=== PATIENT | female | born 1990 | race Caucasian/White ===

== ENCOUNTER 2018-11-17 08:56 | Emergency (ER) | payer SELFPAY ==
[2018-11-17] MEDS ORDERED: ONDANSETRON 4 MG/2 ML VIAL ONE (09:38)
[2018-11-17] MEDS ORDERED: MORPHINE 4 MG/ML SYR ONE (09:38)
[2018-11-17 09:47] LABS: Absolute Monocytes 0.7 K/uL (0.1-1.3); Absolute Neutrophil 9.1 K/uL (1.8-8.0); Basophils % 0.5 % (0-1.3); Eosinophils % 0.4 % (0-4.4); Hematocrit 39.7 % (36.0-45.0); Lymphocytes % 9.2 % (15.3-44.8); MPV 9.8 fL (7.6-11.3); Monocytes % 6.5 % (3.3-12.3); RBC Red Blood Cell Count 4.46 M/uL (3.86-4.86)
[2018-11-17 10:01] LABS: ALT/SGPT 15 U/L (12-78); AST/SGOT 10 U/L (15-37); Albumin 3.7 g/dL (3.4-5.0); Alkaline Phosphatase 66 U/L (45-117); BUN Blood Urea Nitrogen 15 mg/dL (7-18); Bicarbonate 28 mmol/L (21-32); Bilirubin Direct 0.3 mg/dL (0-0.2); Bilirubin Total 1.4 mg/dL (0.2-1.0); Glucose Level 98 mg/dL (74-106); Lipase 59 U/L (73-393); Protein, Total 6.7 g/dL (6.4-8.2); Sodium Level 143 mmol/L (136-145)
[2018-11-17 10:40] LABS: Urine Blood 2+ (NEG); Urine Glucose NEGATIVE (NEG); Urine Protein NEGATIVE (NEG); Urine Specific Gravity 1.015 (1.005-1.030)
--- NOTE | 2018-11-17 11:33 | RAD REPORT ---
EXAM DESCRIPTION: CT - Abdomen Pelvis W Contrast - 11/17/2018 10:58 am CLINICAL HISTORY: Abdominal pain with nausea. COMPARISON: 2014 TECHNIQUE: Computed axial tomography of the abdomen pelvis was obtained. 100 cc Isovue-300 was admin istered intravenously. Oral contrast was not requested which limits evaluation of bowel. All CT scans are performed using dose optimization technique as appropriate and may include automated exposure control or mA/KV adjustment according to patient size. FINDINGS: The liver, spleen, pancreas, adrenal and kidneys appear unremarkable. There is no evidence of diverticulitis. A tampon is in place The wall of the cecum is mildly thickened. Mild stranding is seen within the adjacent fat. The append ix is not clearly seen. IMPRESSION: Mild thickening of the wall of the cecum probably indicates mild inflammation. Mild stra nding is seen within the adjacent fat. The appendix is not clearly seen. If the patient has clinical symptoms to suggest appendicitis then a CT scan with oral contrast and opacification of the terminal ileum/cecum would be recommended
[2018-11-17] MEDS ORDERED: FENTANYL CITR 100 MCG/2 ML ONE ×2 (11:57→14:27)
--- NOTE | 2018-11-17 13:57 | RAD REPORT ---
EXAM DESCRIPTION: CT - Pelvis Wo Cont - 11/17/2018 1:41 pm CLINICAL HISTORY: Oral contrast Right lower quadrant pain. COMPARISON: Abdomen Pelvis W Contrast dated 11/17/2018 TECHNIQUE: All CT scans are performed using dose optimization technique as appropriate and may inclu de automated exposure control or mA/KV adjustment according to patient size. FINDINGS: There is asymmetric wall thickening involving the cecum with surrounding inflammatory jones ges. The anterior cecal wall is thickened to 15-18 mm. No pneumatosis coli seen. The appendix is seen to extend posteriorly from the cecum and fill with contrast indicating that acut e appendicitis is not present. No pelvic mass or hematoma. IMPRESSION: Asymmetric thickening and inflammation involving the cecum distally is present. This wou ld be most compatible with cecal colitis or typhlitis. The appendix is normal and fills with oral con trast.
[2018-11-17] MEDS ORDERED: CIPROFLOXACIN HCL 500 MG TAB ONE (14:28)
[2018-11-17] MEDS ORDERED: metroNIDAZOLE 500 MG TABLET ONE (14:28)
--- NOTE | 2018-11-17 14:59 | EDPHYS ---
Physician Documentation [facility] Name: Kim Tomlin Age: 28 yrs Sex: Female : 1990 Arrival Date: 11/17/2018 Time: 08:59 Bed 17 Private MD: ED Physician Jesse Gastelum HPI: 11/17 09:19 This 28 yrs old Female presents to ER via Ambulatory with complaints of Skin jmm Problem. 09:19 The patient presents with abdominal pain right lower quadrant. Onset: The jmm symptoms/episode began/occurred this morning. Associated signs and symptoms: Pertinent positives: nausea, Pertinent negatives: diarrhea, vomiting. This is a 28 year old female with no chronic medical conditions that presents to the ED with complaints of abdominal pain, nausea beginning this morning. Patient states having complications from a wound from a c section 7 month prior. Patient denies fever. . 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 tw2 Historical: - Allergies: 09:08 PENICILLINS; hb - Home Meds: 09:08 None [Active]; hb - PMHx: 09:08 None; hb - PSHx: 09:08 ; hb - Immunization history:: Adult Immunizations up to date. - Social history:: Smoking status: Patient uses tobacco products, smokes one-half pack cigarettes per day. - Ebola Screening: : No symptoms or risks identified at this time. ROS: 09:19 Constitutional: Negative for fever, chills, and weight loss, Cardiovascular: Negative jmm for chest pain, palpitations, and edema, Respiratory: Negative for shortness of breath, cough, wheezing, and pleuritic chest pain. 09:19 Abdomen/GI: Positive for abdominal pain, nausea. 09:19 All other systems are negative. Exam: 09:19 Constitutional: This is a well developed, well nourished patient who is awake, alert, jmm and in no acute distress. Head/Face: atraumatic. Eyes: EOMI, no conjunctival erythema appreciated ENT: Moist Mucus Membranes Neck: Trachea midline, Supple Chest/axilla: Normal chest wall appearance and motion. Cardiovascular: Regular rate and rhythm. No edema appreciated Respiratory: Normal respirations, no respiratory distress appreciated 09:19 Abdomen/GI: Inspection: abdomen appears normal, Bowel sounds: normal, Palpation: soft, moderate abdominal tenderness, in the right lower quadrant. 09:19 Skin: Appearance: Color: normal in color. 09:19 Neuro: Orientation: is normal, Mentation: is normal, Memory: is normal. 09:19 Psych: Behavior/mood is pleasant, cooperative. Vital Signs: 09:08 BP 123 / 83; Pulse 109; Resp 16; Temp 98.2; Pulse Ox 99% on R/A; Pain 10/10; hb 10:25 BP 109 / 71; Pulse 65; Resp 17; Pulse Ox 99% on R/A; Pain 7/10; tw2 11:12 BP 99 / 58 Supine; Pulse 83; Resp 17; Pulse Ox 99% on R/A; tw2 12:15 BP 98 / 60; Pulse 64; Resp 17; Pulse Ox 98% on R/A; tw2 13:17 BP 101 / 66; Pulse 71; Resp 17; Pulse Ox 98% on R/A; tw2 14:20 BP 96 / 61; Pulse 72; Resp 17; Pulse Ox 99% on R/A; Pain 8/10; tw2 15:06 BP 94 / 70; Pulse 68; Resp 17; Pulse Ox 98% on R/A; tw2 MDM: 09:19 Patient medically screened. [facility] 14:56 Data reviewed: vital signs, nurses notes. Counseling: I had a detailed discussion with esther the patient and/or guardian regarding: the historical points, exam findings, and any diagnostic results supporting the discharge/admit diagnosis, lab results, radiology results, the need for outpatient follow up, to return to the emergency department if symptoms worsen or persist or if there are any questions or concerns that arise at home. ED course: Patient is alert and non toxic in appearance in the ED. CT negative for appendicitis. Patient given return precautions. Patient understood and agrees with the plan of care. . 11/17 09:20 Order name: Basic Metabolic Panel; Complete Time: 10:12 [facility] 11/17 09:20 Order name: CBC with Diff; Complete Time: 09:50 [facility] 11/17 09:20 Order name: Creatinine for Radiology; Complete Time: 10:12 [facility] 11/17 09:20 Order name: Hepatic Function; Complete Time: 10:12 [facility] 11/17 09:20 Order name: Lipase; Complete Time: 10:12 [facility] 11/17 10:29 Order name: Urine Dipstick--Ancillary (enter results); Complete Time: 10:46 11/17 09:20 Order name: CT Abd/Pelvis - W/Contrast; Complete Time: 11:35 [facility] 11/17 10:29 Order name: Urine --Ancillary (enter results); Complete Time: 10:46 11/17 13:41 Order name: Pelvis Wo Cont; Complete Time: 14:01 [facility] 11/17 09:20 Order name: IV Saline Lock; Complete Time: 09:39 [facility] 11/17 09:20 Order name: Labs collected and sent; Complete Time: 09:39 [facility] Administered Medications: 09:36 Drug: Zofran 4 mg Route: IVP; Site: right antecubital; tw2 11:14 Follow up: Response: No adverse reaction tw2 09:38 Drug: morphine 4 mg Route: IVP; Site: right antecubital; tw2 11:14 Follow up: Response: No adverse reaction; Pain is decreased tw2 11:48 Drug: fentaNYL (PF) 25 mcg Route: IVP; Site: right antecubital; tw2 12:40 Follow up: Response: No adverse reaction; Pain is decreased tw2 14:20 Drug: Cipro 500 mg Route: PO; tw2 15:05 Follow up: Response: No adverse reaction tw2 14:20 Drug: Flagyl 500 mg Route: PO; tw2 15:05 Follow up: Response: No adverse reaction tw2 14:20 Drug: fentaNYL (PF) 25 mcg Route: IVP; Site: right antecubital; tw2 15:05 Follow up: Response: No adverse reaction; Pain is decreased tw2 Disposition: 16:40 Co-signature as Attending Physician, Jesse Gastelum MD I agree with the assessment and giovana plan of care. Disposition: 11/17/18 14:58 Discharged to Home. Impression: Colitis. - Condition is Stable. - Discharge Instructions: Colitis. - Prescriptions for Zofran ODT 4 mg Oral tablet,disintegrating - place 1 tablet by TRANSLINGUAL route every 4-6 hours; 20 tablet. Flagyl 500 mg Oral Tablet - take 1 tablet by ORAL route every 8 hours for 10 days; 30 tablet. Tylenol- Codeine #3 300-30 mg Oral Tablet - take 1 tablet by ORAL route every 6 hours As needed; 20 tablet. Cipro 500 mg Oral Tablet - take 1 tablet by ORAL route every 12 hours for 10 days; 20 tablet. - Medication Reconciliation Form, Thank You Letter, Antibiotic Education, Prescription Opioid Use, Work release form, Family Work Release form. - Follow up: Ulises Benavidez MD; When: 2 - 3 days; Reason: Recheck today's complaints, Continuance of care, Re-evaluation by your physician. Signatures: Dispatcher [employer] [facility] Jesse Gastelum MD MD cha Mickail, Joel, PA PA Tawanna Burnette, DANYEL RN Negin Quiroz RN RN tw2 Corrections: (The following items were deleted from the chart) 13:41 11:40 Pelvis W/Cont+CT.RAD.BRZ ordered. [facility] 15:08 14:58 11/17/2018 14:58 Discharged to Home. Impression: Colitis. Condition is Stable. tw2 Forms are Work release form, Family Work Release, Medication Reconciliation Form, Thank You Letter, Antibiotic Education, Prescription Opioid Use. Follow up: Ulises Benavidez; When: 2 - 3 days; Reason: Recheck today's complaints, Continuance of care, Re-evaluation by your physician. [facility]
--- NOTE | 2018-11-17 14:59 | ER ---
Nurse's Notes [facility] Name: Kim Tomlin Age: 28 yrs Sex: Female : 1990 Arrival Date: 11/17/2018 Time: 08:59 Bed 17 Private MD: Diagnosis: Colitis Presentation: 11/17 09:06 Presenting complaint: Patient states: "I had a c section 7 months ago and got an hb infection and almost , today I woke up with a knot on my abdomen and it hurts really bad.:". Transition of care: patient was not received from another setting of care. Onset of symptoms was November 17, 2018. Risk Assessment: Do you want to hurt yourself or someone else? Patient reports no desire to harm self or others. Care prior to arrival: Medication(s) given: Tylenol, at 0630 today. 09:06 Method Of Arrival: Ambulatory hb 09:06 Acuity: ROSEY 3 hb 09:14 Initial Sepsis Screen: Does the patient meet any 2 criteria? No. Patient's initial tw2 sepsis screen is negative. Does the patient have a suspected source of infection? Yes: Skin breakdown/wound. 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 tw2 Historical: - Allergies: 09:08 PENICILLINS; hb - Home Meds: 09:08 None [Active]; hb - PMHx: 09:08 None; hb - PSHx: 09:08 ; hb - Immunization history:: Adult Immunizations up to date. - Social history:: Smoking status: Patient uses tobacco products, smokes one-half pack cigarettes per day. - Ebola Screening: : No symptoms or risks identified at this time. Screenin:09 Abuse screen: Denies threats or abuse. Denies injuries from another. Nutritional hb screening: No deficits noted. Tuberculosis screening: No symptoms or risk factors identified. Fall Risk None identified. Assessment: 09:15 General: Appears in no apparent distress. Behavior is agitated. Pain: Complains of pain tw2 in right lower quadrant and left lower quadrant. Neuro: Level of Consciousness is awake, alert, obeys commands, Oriented to person, place, time, situation. Cardiovascular: Patient's skin is warm and dry. Respiratory: Airway is patent Respiratory effort is even, unlabored, Respiratory pattern is regular, symmetrical. GI: No signs and/or symptoms were reported involving the gastrointestinal system. : No signs and/or symptoms were reported regarding the genitourinary system. EENT: No signs and/or symptoms were reported regarding the EENT system. Derm: Reports pain where incision was. Musculoskeletal: Range of motion: intact in all extremities. 10:29 Reassessment: Patient appears in no apparent distress at this time. No changes from tw2 previously documented assessment. Patient and/or family updated on plan of care and expected duration. Pain level reassessed. Patient is alert, oriented x 3, equal unlabored respirations, skin warm/dry/pink. 11:12 Reassessment: Patient appears in no apparent distress at this time. No changes from tw2 previously documented assessment. Patient and/or family updated on plan of care and expected duration. Pain level reassessed. Patient is alert, oriented x 3, equal unlabored respirations, skin warm/dry/pink. 12:15 Reassessment: Patient appears in no apparent distress at this time. No changes from tw2 previously documented assessment. Patient and/or family updated on plan of care and expected duration. Pain level reassessed. Patient is alert, oriented x 3, equal unlabored respirations, skin warm/dry/pink. 13:17 Reassessment: Patient appears in no apparent distress at this time. Patient and/or tw2 family updated on plan of care and expected duration. Pain level reassessed. Patient is alert, oriented x 3, equal unlabored respirations, skin warm/dry/pink. 14:11 Reassessment: Patient appears in no apparent distress at this time. No changes from tw2 previously documented assessment. Patient and/or family updated on plan of care and expected duration. Pain level reassessed. Patient is alert, oriented x 3, equal unlabored respirations, skin warm/dry/pink. provider at bedside at this time. 15:06 Reassessment: Patient appears in no apparent distress at this time. No changes from tw2 previously documented assessment. Patient and/or family updated on plan of care and expected duration. Pain level reassessed. Patient is alert, oriented x 3, equal unlabored respirations, skin warm/dry/pink. Vital Signs: 09:08 BP 123 / 83; Pulse 109; Resp 16; Temp 98.2; Pulse Ox 99% on R/A; Pain 10/10; hb 10:25 BP 109 / 71; Pulse 65; Resp 17; Pulse Ox 99% on R/A; Pain 7/10; tw2 11:12 BP 99 / 58 Supine; Pulse 83; Resp 17; Pulse Ox 99% on R/A; tw2 12:15 BP 98 / 60; Pulse 64; Resp 17; Pulse Ox 98% on R/A; tw2 13:17 BP 101 / 66; Pulse 71; Resp 17; Pulse Ox 98% on R/A; tw2 14:20 BP 96 / 61; Pulse 72; Resp 17; Pulse Ox 99% on R/A; Pain 8/10; tw2 15:06 BP 94 / 70; Pulse 68; Resp 17; Pulse Ox 98% on R/A; tw2 ED Course: 08:59 Patient arrived in ED. as 09:07 Triage completed. hb 09:08 Arm band placed on. hb 09:13 Felix Lind PA is PHCP. jmm 09:13 Jesse Gastelum MD is Attending Physician. [facility] 09:14 Negin Young, DANYEL is Primary Nurse. tw2 09:14 Bed in low position. Call light in reach. Pulse ox on. NIBP on. tw2 09:35 Inserted saline lock: 22 gauge in right antecubital area, using aseptic technique. tw2 Blood collected. 09:51 Radiology exam delayed due to lab results not completed at this time. (BUN/Creatinine). sj 10:22 Patient has correct armband on for positive identification. Bed in low position. Call mh5 light in reach. Side rails up X 1. Adult w/ patient. Warm blanket given. Pulse ox on. NIBP on. 10:22 Urine collected: clean catch specimen, clear. 5 10:[address] via wheelchair. sj 11:01 CT Abd/Pelvis - W/Contrast In Process Unspecified. EDMS 13:40 CT completed. Patient tolerated procedure well. Patient moved to CT via wheelchair. Patient moved back from CT. 13:50 Pelvis Wo Cont In Process Unspecified. EDMS 14:57 Ulises Benavidez MD is Referral Physician. [facility] 15:06 No provider procedures requiring assistance completed. IV discontinued, intact, tw2 bleeding controlled, No redness/swelling at site. Pressure dressing applied. Administered Medications: 09:36 Drug: Zofran 4 mg Route: IVP; Site: right antecubital; tw2 11:14 Follow up: Response: No adverse reaction tw2 09:38 Drug: morphine 4 mg Route: IVP; Site: right antecubital; tw2 11:14 Follow up: Response: No adverse reaction; Pain is decreased tw2 11:48 Drug: fentaNYL (PF) 25 mcg Route: IVP; Site: right antecubital; tw2 12:40 Follow up: Response: No adverse reaction; Pain is decreased tw2 14:20 Drug: Cipro 500 mg Route: PO; tw2 15:05 Follow up: Response: No adverse reaction tw2 14:20 Drug: Flagyl 500 mg Route: PO; tw2 15:05 Follow up: Response: No adverse reaction tw2 14:20 Drug: fentaNYL (PF) 25 mcg Route: IVP; Site: right antecubital; tw2 15:05 Follow up: Response: No adverse reaction; Pain is decreased tw2 Outcome: 14:58 Discharge ordered by . esther 15:06 Discharged to home ambulatory, with significant other. tw2 15:06 Condition: stable 15:06 Discharge instructions given to patient, significant other, Instructed on discharge instructions, follow up and referral plans. no drinking with medication, no driving heavy equipment, medication usage, Demonstrated understanding of instructions, follow-up care, medications, Prescriptions given X 4. 15:08 Patient left the ED. tw2 Signatures: Dispatcher [employer] EDMS Felix Lind PA PA jmm Jones, Susan sj Martinez, Amelia as Baxter, Heather, RN RN hb Wise, Tara, RN RN [facility] Elza Couch [facility] Corrections: (The following items were deleted from the chart) 10:20 09:06 Acuity: ROSEY 4 hb hb
== END 2018-11-17 15:08 | disposition home or self-care (01) ==
LOC: ER 08:56
DX: K52.9 Noninfective gastroenteritis and colitis, unspecified (principal); F17.210 Nicotine dependence, cigarettes, uncomplicated; Z88.0 Allergy status to penicillin
CPT/HCPCS: 36415; 72192; 74177; 80048; 80076; 81003; 81025; 83690; 85025; J2405; J3010; Q9967

== ENCOUNTER 2019-03-21 09:50 | Emergency (ER) | payer SELFPAY ==
--- OUTSIDE RECORDS SUMMARY | 2019-03-21 09:52 | XMS REPORT ---
:1990 [facility] Address [address] [place] [address] Dr. Land [address] [place] [id number] Care Team Providers Name Role Phone Unavailable Unavailable Unavailable Problems This patient has no known problems. Allergies, Adverse Reactions, Alerts This patient has no known allergies or adverse reactions. Medications This patient has no known medications.
[2019-03-21] MEDS ORDERED: ONDANSETRON 4 MG/2 ML VIAL ONE (10:46)
[2019-03-21] MEDS ORDERED: NA CHLORIDE 0.9% 1,000 ML ONE (10:46)
[2019-03-21] MEDS ORDERED: MORPHINE 4 MG/ML SYR ONE (10:46)
[2019-03-21 10:47] LABS: Absolute Lymphocytes (CBC) 1.2 K/uL (0.7-4.9); Basophils % 0.4 % (0-1.3); Eosinophils % 0.8 % (0-4.4); Hematocrit 42.6 % (36.0-45.0); Lymphocytes % 11.2 % (15.3-44.8); MPV 10.1 fL (7.6-11.3); Monocytes % 4.6 % (3.3-12.3); RBC Red Blood Cell Count 4.72 M/uL (3.86-4.86)
[2019-03-21 10:59] LABS: ALT/SGPT 18 U/L (12-78); AST/SGOT 11 U/L (15-37); Albumin 3.9 g/dL (3.4-5.0); Alkaline Phosphatase 56 U/L (45-117); BUN Blood Urea Nitrogen 15 mg/dL (7-18); Bicarbonate 27 mmol/L (21-32); Bilirubin Direct 0.2 mg/dL (0-0.2); Bilirubin Total 0.7 mg/dL (0.2-1.0); Glucose Level 114 mg/dL (74-106); Lipase 82 U/L (73-393); Potassium 4.2 mmol/L (3.5-5.1); Protein, Total 6.9 g/dL (6.4-8.2); Sodium Level 141 mmol/L (136-145)
[2019-03-21 11:16] LABS: Urine Blood TRACE (NEG); Urine Glucose NEGATIVE (NEG); Urine Protein TRACE (NEG); Urine pH 7.5 (5.0-7.0)
--- NOTE | 2019-03-21 12:01 | RAD REPORT ---
EXAM DESCRIPTION: CT - Abdomen Pelvis W Contrast - 03/21/2019 11:26 am CLINICAL HISTORY: Right-sided abdominal pain COMPARISON: CT study October 2018 TECHNIQUE: Biphasic, helical CT imaging of the abdomen and pelvis was performed following 100 ml non -ionic IV contrast. Oral contrast was given. All CT scans are performed using dose optimization technique as appropriate and may include automated exposure control or mA/KV adjustment according to patient size. FINDINGS: No suspicious findings in the lung bases. The liver, spleen, and pancreas show no suspicious findings. Gallbladder and biliary tree are also wi thout suspicious finding. Symmetric renal function is seen with no hydronephrosis or suspicious renal mass. No pyelonephritis o r acute parenchymal process. No bladder abnormalities. No adrenal abnormalities. Uterus and ovaries show no suspicious findings. No dilated bowel loops or bowel wall thickening. Appendix is identified and normal in diameter. No fr ee air or pneumatosis. Physiologic quantity of free fluid seen in the cul de sac. Tampon is in place. No hernia, mass or bulky lymphadenopathy. No suspicious bony findings. IMPRESSION: Contrast enhanced CT abdomen and pelvis showing no significant or suspicious finding. Physiologic quantity of free fluid is present in the cul de sac. No abnormality seen to explain right -sided pain pattern.
--- NOTE | 2019-03-21 12:19 | ER ---
Nurse's Notes [facility] Name: Kim Tomlin Age: 29 yrs Sex: Female : 1990 Arrival Date: 03/21/2019 Time: 09:52 Bed 13 Private MD: Diagnosis: Abdominal and pelvic pain Presentation: 03/21 10:10 Presenting complaint: Patient states: i have this pain on my R lower abd that goes up hj to my upper abdomen that started today; i vomited once; denies fever and chills;. Transition of care: patient was not received from another setting of care. Onset of symptoms was March 21, 2019. Risk Assessment: Do you want to hurt yourself or someone else? Patient reports no desire to harm self or others. Initial Sepsis Screen: Does the patient meet any 2 criteria? No. Patient's initial sepsis screen is negative. Does the patient have a suspected source of infection? No. Patient's initial sepsis screen is negative. Care prior to arrival: None. 10:10 Method Of Arrival: Ambulatory 10:10 Acuity: ROSEY 3 Triage Assessment: 10:14 General: Appears in no apparent distress. uncomfortable, Behavior is calm, cooperative, hj appropriate for age. Pain: Complains of pain in abdomen. GI: Reports lower abdominal pain, upper abdominal pain, nausea, vomiting. 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 - Social history:: Smoking status: Patient uses tobacco products, Patient/guardian denies using alcohol. - Ebola Screening: : Patient negative for fever greater than or equal to 101.5 degrees Fahrenheit, and additional compatible Ebola Virus Disease symptoms Patient denies exposure to infectious person Patient denies travel to an Ebola-affected area in the 21 days before illness onset. Screenin:13 Abuse screen: Denies threats or abuse. Denies injuries from another. Nutritional hj screening: No deficits noted. Tuberculosis screening: No symptoms or risk factors identified. Fall Risk None identified. Assessment: 10:14 GI: Bowel sounds Abd is soft Abdomen is tender to palpation. hj 10:14 General: Appears in no apparent distress. uncomfortable, Behavior is calm, cooperative, hj appropriate for age. Pain: Complains of pain in right lower quadrant and suprapubic area and abdomen. Neuro: Level of Consciousness is awake, alert, obeys commands, Oriented to person, place, time, situation, Appropriate for age. Cardiovascular: Capillary refill < 3 seconds Patient's skin is warm and dry. Respiratory: Airway is patent Respiratory effort is even, unlabored, Respiratory pattern is regular, symmetrical. : No signs and/or symptoms were reported regarding the genitourinary system. EENT: No signs and/or symptoms were reported regarding the EENT system. Derm: No signs and/or symptoms reported regarding the dermatologic system. Musculoskeletal: No signs and/or symptoms reported regarding the musculoskeletal system. 11:28 Reassessment: Patient and/or family updated on plan of care and expected duration. Pain hj level reassessed. Patient is alert, oriented x 3, equal unlabored respirations, skin warm/dry/pink. awaiting results and POc;. 12:50 Reassessment: Patient and/or family updated on plan of care and expected duration. Pain hj level reassessed. Patient is alert, oriented x 3, equal unlabored respirations, skin warm/dry/pink. awaiting for fluids to be finshed;. Vital Signs: 10:15 BP 110 / 73; Pulse 89; Resp 18; Temp 98.5(TE); Pulse Ox 99% on R/A; Weight 54.43 kg; hj Height 5 ft. 5 in. (165.10 cm); Pain 10/10; 11:28 BP 115 / 70; Pulse 85; Resp 18; Pulse Ox 100% on R/A; hj 12:51 BP 110 / 69; Pulse 80; Resp 18; Pulse Ox 100% on R/A; hj 10:15 Body Mass Index 19.97 (54.43 kg, 165.10 cm) ED Course: 09:52 Patient arrived in ED. mr 10:03 Felix Lind PA is PHCP. jmm 10:03 Jesse Gastelum MD is Attending Physician. jmm 10:10 Lio Riley, DANYEL is Primary Nurse. hj 10:11 Triage completed. hj 10:12 Urine collected: clean catch specimen, clear, kike colored. jb1 10:14 Arm band placed on right wrist. hj 10:15 Patient has correct armband on for positive identification. Placed in gown. Bed in low hj position. Call light in reach. Side rails up X 1. Adult w/ patient. 10:30 Initial lab(s) drawn, by me, sent to lab. Inserted saline lock: 22 gauge in right hj antecubital area, using aseptic technique. Blood collected. 11:26 CT completed. Patient tolerated procedure well. Patient moved back from CT. bq 11:26 CT Abd/Pelvis - IV Contrast Only In Process Unspecified. EDMS 12:17 Ulises Benavidez MD is Referral Physician. jmm 12:17 Best King MD is Referral Physician. jm 12:18 Marcos Carlson MD is Referral Physician. [facility] 13:07 No provider procedures requiring assistance completed. IV discontinued, intact, hj bleeding controlled, No redness/swelling at site. Pressure dressing applied. Administered Medications: 10:30 Drug: morphine 4 mg Route: IVP; Site: right antecubital; hj 12:46 Follow up: Response: No adverse reaction; Pain is decreased hj 10:30 Drug: Zofran 4 mg Route: IVP; Site: right antecubital; hj 12:45 Follow up: Response: No adverse reaction hj 10:30 Drug: NS 0.9% 1000 ml Route: IV; Rate: 1 bolus; Site: right antecubital; hj 13:10 Follow up: IV Status: Completed infusion; IV Intake: 1000ml hj Intake: 13:10 IV: 1000ml; Total: 1000ml. hj Outcome: 12:19 Discharge ordered by . m 13:07 Discharged to home ambulatory, with family. hj 13:07 Condition: stable 13:07 Discharge instructions given to patient, family, Instructed on discharge instructions, follow up and referral plans. medication usage, Demonstrated understanding of instructions, follow-up care, medications, Prescriptions given X 1. 13:09 Patient left the ED. hj Signatures: Dispatcher [employer] EDMS Shahbaz Dugan jb1 Felix Lind PA PA jmm Rivera, Mary mr RajeevsivakumarKaylen bq Lio Riley RN RN hj
--- NOTE | 2019-03-21 12:20 | EDPHYS ---
Physician Documentation [facility] Name: Kim Tomlin Age: 29 yrs Sex: Female : 1990 Arrival Date: 03/21/2019 Time: 09:52 Bed 13 Private MD: ED Physician Jesse Gastelum HPI: 03/21 10:13 This 29 yrs old Female presents to ER via Ambulatory with complaints of jmm Abdominal Pain. 10:13 The patient presents with abdominal pain. Onset: The symptoms/episode began/occurred jmm this morning. The symptoms do not radiate. Associated signs and symptoms: Pertinent positives: nausea. The symptoms are described as achy, sharp. Modifying factors: The symptoms are alleviated by nothing, the symptoms are aggravated by pressure, touching the area. This is a 29 year old female with no known chronic medical conditions that presents to the ED with complaints of lower abdominal pain beginning this morning. patient has had similar episodes in the past. . 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 - Social history:: Smoking status: Patient uses tobacco products, Patient/guardian denies using alcohol. - Ebola Screening: : Patient negative for fever greater than or equal to 101.5 degrees Fahrenheit, and additional compatible Ebola Virus Disease symptoms Patient denies exposure to infectious person Patient denies travel to an Ebola-affected area in the 21 days before illness onset. ROS: 10:15 Constitutional: Negative for fever, chills, and weight loss, Cardiovascular: Negative jmm for chest pain, palpitations, and edema, Respiratory: Negative for shortness of breath, cough, wheezing, and pleuritic chest pain. 10:15 Abdomen/GI: Positive for abdominal pain, nausea. 10:15 All other systems are negative. Exam: 10:15 Constitutional: This is a well developed, well nourished patient who is awake, alert, jmm and in no acute distress. Head/Face: atraumatic. Eyes: EOMI, no conjunctival erythema appreciated ENT: Moist Mucus Membranes Neck: Trachea midline, Supple Chest/axilla: Normal chest wall appearance and motion. Cardiovascular: Regular rate and rhythm. No edema appreciated Respiratory: Normal respirations, no respiratory distress appreciated 10:15 Back: Normal ROM Skin: General appearance color normal MS/ Extremity: Moves all extremities, no obvious deformities appreciated, no edema noted to the lower extremities Neuro: Awake and alert, normal gait Psych: Behavior is normal, Mood is normal, Patient is cooperative and pleasant 10:15 Abdomen/GI: Inspection: abdomen appears normal, Bowel sounds: normal, Palpation: soft, moderate abdominal tenderness, in the suprapubic area and right lower quadrant. Vital Signs: 10:15 BP 110 / 73; Pulse 89; Resp 18; Temp 98.5(TE); Pulse Ox 99% on R/A; Weight 54.43 kg; hj Height 5 ft. 5 in. (165.10 cm); Pain 10/10; 11:28 BP 115 / 70; Pulse 85; Resp 18; Pulse Ox 100% on R/A; hj 12:51 BP 110 / 69; Pulse 80; Resp 18; Pulse Ox 100% on R/A; hj 10:15 Body Mass Index 19.97 (54.43 kg, 165.10 cm) MDM: 10:03 Patient medically screened. [facility] 12:06 Data reviewed: vital signs, nurses notes, lab test result(s), radiologic studies, CT [facility] scan. Counseling: I had a detailed discussion with the patient and/or guardian regarding: the historical points, exam findings, and any diagnostic results supporting the discharge/admit diagnosis, radiology results, the need for outpatient follow up, to return to the emergency department if symptoms worsen or persist or if there are any questions or concerns that arise at home. ED course: Patient is alert and non toxic in appearance. Patient is advised to follow up with GI for further evaluation. patient was otherwise given strict return precautions. patient understood and agrees with the plan of care. . 03/21 10:12 Order name: CT Abd/Pelvis - IV Contrast Only; Complete Time: 12:05 [facility] 03/21 10:13 Order name: Urine Dipstick--Ancillary (enter results); Complete Time: 12:05 bd 03/21 10:13 Order name: Urine --Ancillary (enter results); Complete Time: 12: 03/21 10:35 Order name: Basic Metabolic Panel; Complete Time: 10:59 [facility] 03/21 10:35 Order name: Liver (Hepatic) Function; Complete Time: 10:59 [facility] 03/21 10:35 Order name: Lipase; Complete Time: 10:59 [facility] 03/21 10:36 Order name: CBC with Automated Diff; Complete Time: 10:51 [facility] 03/21 10:12 Order name: IV Saline Lock; Complete Time: 10:42 [facility] 03/21 10:12 Order name: Labs collected and sent; Complete Time: 10:43 [facility] 03/21 10:12 Order name: Urine Dipstick-Ancillary (obtain specimen); Complete Time: 10:12 [facility] Administered Medications: 10:30 Drug: morphine 4 mg Route: IVP; Site: right antecubital; hj 12:46 Follow up: Response: No adverse reaction; Pain is decreased 10:30 Drug: Zofran 4 mg Route: IVP; Site: right antecubital; hj 12:45 Follow up: Response: No adverse reaction 10:30 Drug: NS 0.9% 1000 ml Route: IV; Rate: 1 bolus; Site: right antecubital; hj 13:10 Follow up: IV Status: Completed infusion; IV Intake: 1000ml hj Disposition: 03/22 09:57 Co-signature as Attending Physician, Jesse Gastelum MD I agree with the assessment and giovana plan of care. Disposition: 03/21/19 12:19 Discharged to Home. Impression: Abdominal and pelvic pain. - Condition is Stable. - Discharge Instructions: Abdominal Pain, Adult, Pelvic Pain, Female. - Prescriptions for Tylenol- Codeine #3 300-30 mg Oral Tablet - take 1 tablet by ORAL route every 6 hours As needed; 12 tablet. - Medication Reconciliation Form, Thank You Letter, Antibiotic Education, Prescription Opioid Use, Work release form form. - Follow up: Ulises Benavidez MD; When: 2 - 3 days; Reason: Recheck today's complaints, Continuance of care, Re-evaluation by your physician. Follow up: Best King MD; When: 2 - 3 days; Reason: Recheck today's complaints, Continuance of care, Re-evaluation by your physician. Follow up: Marcos Carlson MD; When: 2 - 3 days; Reason: Recheck today's complaints, Continuance of care, Re-evaluation by your physician. Signatures: Dispatcher [employer] [facility] Jesse Gastelum MD MD cha Mickail, Joel, PA PA jmm Joaquin, Henry, RN RN hj Corrections: (The following items were deleted from the chart) 03/21 10:58 10:48 Facial Bones W/ Mpr ordered. EDNM EDMS 10:58 10:48 Head C Spine Mpr Wo Con ordered. EDNM EDMS 11:01 10:48 Chest Single View ordered. EDNM EDMS 11:01 10:49 Knee Left 3 View ordered. EDNM EDMS 11:01 10:49 Elbow Right 3 View ordered. EDNM EDMS 11:01 10:49 Hand Right 3 View ordered. EDNM EDMS 11:01 10:49 Wrist Right 3 View ordered. [facility] EDMS 11:02 10:49 Abdomen ordered. EDNM EDMS 12:40 10:57 BASIC METABOLIC PANEL+C.LAB.BRZ ordered. EDNM EDMS 12:40 10:57 HEPATIC FUNCTION+C.LAB.BRZ ordered. EDNM EDMS 12:41 10:57 CBC+H.LAB.BRZ ordered. EDNM EDMS 12:41 10:57 Creatinine for Radiology+C.LAB.BRZ ordered. EDNM EDMS 12:41 10:57 LIPASE+C.LAB.BRZ ordered. [facility] EDMS 13:09 12:19 03/21/2019 12:19 Discharged to Home. Impression: Abdominal and pelvic pain. hj Condition is Stable. Forms are Medication Reconciliation Form, Thank You Letter, Antibiotic Education, Prescription Opioid Use. Follow up: Ulises Benavidez; When: 2 - 3 days; Reason: Recheck today's complaints, Continuance of care, Re-evaluation by your physician. Follow up: Best King; When: 2 - 3 days; Reason: Recheck today's complaints, Continuance of care, Re-evaluation by your physician. Follow up: Marcos Carlson; When: 2 - 3 days; Reason: Recheck today's complaints, Continuance of care, Re-evaluation by your physician. esther
== END 2019-03-21 13:09 | disposition home or self-care (01) ==
LOC: ER 09:50
DX: R10.2 Pelvic and perineal pain (principal); Z72.0 Tobacco use; Z88.0 Allergy status to penicillin
CPT/HCPCS: 36415; 74177; 80048; 80076; 81003; 81025; 83690; 85025; 96361; 96374; 96375; 99284; J2405; J7030; Q9967

== ENCOUNTER 2022-05-02 19:39 | Emergency (ER) | payer SELFPAY ==
--- OUTSIDE RECORDS SUMMARY | 2022-05-02 19:42 | XMS REPORT | Continuity of Care Document ---
:1990 Author Organization [facility] t Address [address] [place] [address] Care Team Providers Name Role Phone RODOLFO MONTES Primary Care Physician Unavailable Kyle Grey MD Attending Clinician KYLE GREY Attending Clinician Unavailable KYLE GREY Attending Clinician Unavailable MORRIS Attending Clinician Unavailable Rodolfo Montes Attending Clinician [phone] MORRIS Admitting Clinician Unavailable Payers Payer Name Policy Type Policy Number Effective Date Expiration Date S [facility] INDIGENT PROGRAM [id number] Problems Condition Condition Condition Status Onset Resolution Last Treating Co mments Source Name Details Category Date Date Treatment Clinician Date No known No known Disease Unive rs active active ity of problems problems [facility] Allergies, Adverse Reactions, Alerts Allergy Allergy Status Severity Reaction(s) Onset Inactive Treating Comm ents Source Name Type Date Date Clinician Penicill Propensi Active Anaphylaxis 2019-0 U nivers ins ty to 5-23 ity of adverse 00:00: [place] reaction 00 Medical s Branch PENICILL Drug Active Anaphylaxis 2019-0 Uni vers INS Class 5-23 ity of 00:00: [place] 00 Medical Branch Social History Social Habit Start Date Stop Date Quantity Comments Source Exposure to 2022-03-16 2022-03-26 Not sure [facility] SARS-CoV-2 (event) 00:00:00 12:54:00 Medica Branch Sex Ass[birth year] At [birth year] [facility] 00:00:00 00:00:00 Medical Branch Smoking Status Start Date Stop Date Source Unknown if ever smoked [facility] [place] [facility] Medications Ordered Filled Start Stop Current Ordering Indication Dosage Frequency Signature Comments Components Source Medication Medication Date Date Medication? Clinician (SIG) Name Name meloxicam Yes meloxicam Uni vers 15 mg 6-28 15 mg ity of tablet 12:58: tablet [place] 14 TAKE 1 Medical TABLET BY Branch MOUTH 1 TIME EACH DAY meloxicam Yes meloxicam Uni vers 15 mg 6-28 15 mg ity of tablet 12:58: tablet [place] 14 TAKE 1 Medical TABLET BY Branch MOUTH 1 TIME EACH DAY butalbital- Yes butalbital Univers acetaminoph 6-28 -acetamino it y of en-caff 12:58: phen-caffe [place] 50-325-40 13 ine 50 Medical mg tablet mg-325 Branch mg-40 mg tablet TAKE 1 TABLET BY MOUTH EVERY DAY NEEDED gabapentin Yes gabapentin U nivers 400 mg 6-28 400 mg ity of capsule 12:58: capsule [place] 13 TAKE 1 Medical CAPSULE BY Branch MOUTH THREE TIMES DAILY butalbital- Yes butalbital Univers acetaminoph 6-28 -acetamino it y of en-caff 12:58: phen-caffe [place] 50-325-40 13 ine 50 Medical mg tablet mg-325 Branch mg-40 mg tablet TAKE 1 TABLET BY MOUTH EVERY DAY NEEDED gabapentin Yes gabapentin U nivers 400 mg 6-28 400 mg ity of capsule 12:58: capsule [place] 13 TAKE 1 Medical CAPSULE BY Branch MOUTH THREE TIMES DAILY topiramate Yes [id number] 25mg Take 1 Univers 25 mg 6-28 tablet by ity of tablet 00:00: mouth [place] ([facility]) Medical times [place] daily. After 5 days, may take 2 PO BID. topiramate Yes [id number] 25mg Take 1 Univers 25 mg 6-28 tablet by ity of tablet 00:00: mouth [place] ([facility]) Medical times [place] daily. After 5 days, may take 2 PO BID. naproxen Yes [id number] 550mg Take 1 U nivers sodium 550 9-19 tablet by ity of mg tablet 00:00: mouth [place] (two) Medical times [place] daily with meals. naproxen Yes [id number] 550mg Take 1 U nivers sodium 550 9-19 tablet by ity of mg tablet 00:00: mouth 2 [place] 00 (two) Medical times [place] daily with meals. Vital Signs Vital Name Observation Time Observation Value Comments Source Systolic blood 2022-03-26 18:02:00 116 mm[Hg] [facility] pressure [facility] Diastolic blood 2022-03-26 18:02:00 76 mm[facility]Hg[facility] 2022-03-26 18:02:00 75 /min [facility] Body height 2022-03-26 18:02:00 165.1 cm [facility] Body weight 2022-03-26 18:02:00 59.875 kg [facility] BMI 2022-03-26 18:02:00 21.97 kg/m2 [facility] Oxygen saturation 2022-03-26 18:02:00 98 /min [facility] in Arterial blood [facility] anch by Pulse oximetry Procedures This patient has no known procedures. Encounters Start End Encounter Admission Attending Care Care Encounter Source Date/Time Date/Time Type Type Clinicians Facility Department ID 2022-03-26 2022-03-26 Office Matilda [facility] [id number] [facility] 13:20:00 14:13:02 Visit [facility] [id number] [facility] [id number] Gerardo as JENNY?BLEA [id number] [address] MEDICAL OFFICE BUILDING 2022-03-26 2022-03-26 Outpatient KYLE [facility] [id number] [facility] 13:20:00 14:13:02 KYLE GREY itjose [facility] [place] [facility] 2022-01-22 2022-01-22 Outpatient MORRIS [facility] [id number] 10:14:00 10:14:00 [facility] 2022-01-22 2022-01-22 Outpatient RIAN Montes [facility] [id number] 00:00:00 00:00:00 Rodolfo [id number] Harinder [id number] 2021-12-31 2021-12-31 Outpatient ERICKSON_R [facility] [address] 04:40:00 04:40:00 0404 [facility] 2021-12-21 2021-12-21 Outpatient ERICKSON_R [facility] [address] 10:27:00 10:27:00 0325 [facility] 2021-12-14 2021-12-14 Outpatient ERICKSON_R [facility] [address] 04:41:00 04:41:00 0318 [facility] 2021-12-14 2021-12-14 Outpatient Kushal, [facility] [id number] 00:00:00 00:00:00 Rodolfo [id number] Harinder [id number] 2021-12-11 2021-12-11 Outpatient ERICKSON_R [facility] [address] 04:34:00 04:34:00 0315 [facility] 2021-11-05 2021-11-05 Outpatient ERICKSON_R [facility] [address] 02:12:00 02:12:00 [id number] [facility] 2021-10-26 2021-10-26 Outpatient ERICKSON_R [facility] [address] 08:50:00 08:50:00 0128 [facility] 2021-05-28 2021-05-28 Outpatient ERICKSON_R [facility] [address] 03:40:00 03:40:00 0830 [facility] 2021-05-28 2021-05-28 Outpatient Kushal, [facility] [id number] 00:00:00 00:00:00 Rodolfo [id number] Harinder [id number] 2021-05-15 2021-05-15 Outpatient ERICKSON_R [facility] [id number] 01:01:00 01:01:00 0817 [facility] 2021-05-15 2021-05-15 Outpatient Kushal [facility] [id number] 00:00:00 00:00:00 Rodolfo [id number] Harinder [id number] 2021-01-22 2021-01-22 Outpatient ERICKSON_R [facility] [id number] 05:03:00 05:03:00 0426 [facility] 2021-01-22 2021-01-22 Outpatient Kushal [facility] [id number] 00:00:00 00:00:00 Rodolfo [id number] Harinder [id number] 2021-01-08 2021-01-08 Outpatient ERICKSON_R [facility] [address] 06:08:00 06:08:00 0412 [facility] 2021-01-08 2021-01-08 Outpatient Kushal [facility] [id number] 00:00:00 00:00:00 Rodolfo [id number] Harinder [id number] 2020-12-07 2020-12-07 Outpatient ERICKSON_R [facility] [address] 04:19:00 04:19:00 0311 [facility] 2020-12-07 2020-12-07 Outpatient Kushal [facility] [id number] 00:00:00 00:00:00 Rodolfo [id number] Harinder [id number] 2020-11-30 2020-11-30 Outpatient ERICKSON_R [facility] [address] 10:49:00 10:49:00 [id number] [facility] Results This patient has no known results.
--- NOTE | 2022-05-02 21:25 | RAD REPORT ---
EXAM DESCRIPTION: RAD - Tib Fib Right - 05/02/2022 8:53 pm CLINICAL HISTORY: PAIN COMPARISON: No comparisons FINDINGS: No fracture is identified. There is no dislocation or periosteal reaction noted. No acute or suspicious bony finding. No foreign body or other soft tissue abnormality. IMPRESSION: Negative right tibia & fibula examination.
--- NOTE | 2022-05-02 21:34 | ER ---
Nurse's Notes [facility] Name: Kim Tomlin Age: 32 yrs Sex: Female : 1990 Arrival Date: 05/02/2022 Time: 19:41 Bed 5 Private MD: Diagnosis: Contusion of right lower leg;Strain of other muscle(s) and tendon(s) at lower leg level, right leg;Pain in right lower leg Presentation: 05/02 19:52 Chief complaint: Patient states: "I was rough housing and I went backwards into a pull vc1 and I hyperextended my knee.". Coronavirus screen: Vaccine status: Patient reports being unvaccinated. At this time, the client does not indicate any symptoms associated with coronavirus-19. Ebola Screen: No symptoms or risks identified at this time. Initial Sepsis Screen: Does the patient meet any 2 criteria? No. Patient's initial sepsis screen is negative. Does the patient have a suspected source of infection? No. Patient's initial sepsis screen is negative. Risk Assessment: Do you want to hurt yourself or someone else? Patient reports no desire to harm self or others. Onset of symptoms was April 27, 2022. 19:52 Method Of Arrival: Ambulatory vc1 19:52 Acuity: ROSEY 4 vc1 Triage Assessment: 19:57 General: Appears in no apparent distress. uncomfortable, Behavior is calm, cooperative, vc1 appropriate for age. Pain: Complains of pain in lateral aspect of right knee, posterior aspect of right knee, medial aspect of right knee and right knee Pain radiates to right leg Pain currently is 10 out of 10 on a pain scale. EENT: No deficits noted. Neuro: Level of Consciousness is awake, alert, obeys commands, Oriented to person, place, time, situation, Appropriate for age. Cardiovascular: Capillary refill < 3 seconds Patient's skin is warm and dry. Respiratory: Airway is patent Respiratory effort is even, unlabored, Respiratory pattern is regular, symmetrical. GI: No deficits noted. : No signs and/or symptoms were reported regarding the genitourinary system. Derm: No deficits noted. Musculoskeletal: Range of motion: limited in right knee. 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 - Social history:: Smoking status: Reported history of juuling and/or vaping. - Family history:: not pertinent. - Hospitalizations: : No recent hospitalization is reported. Screenin:57 Abuse screen: Denies threats or abuse. Nutritional screening: No deficits noted. vc1 Tuberculosis screening: No symptoms or risk factors identified. Fall Risk None identified. Assessment: 20:05 General: Appears uncomfortable, Behavior is calm, cooperative. Pain: Complains of pain ll3 in lateral aspect of right knee Pain currently is 10 out of 10 on a pain scale. Is continuous. Neuro: Level of Consciousness is awake, alert, obeys commands, Oriented to person, place, time, situation. Respiratory: Respiratory effort is even, unlabored, Respiratory pattern is regular, symmetrical. Derm: Skin is pink, warm \\T\\ dry. Musculoskeletal: Range of motion: limited in right knee Reports pain in right knee. Vital Signs: 19:52 BP 105 / 68; Pulse 75; Resp 15; Temp 98.6; Pulse Ox 100% ; Weight 61.23 kg; Height 5 vc1 ft. 5 in. (165.10 cm); Pain 10/10; 19:52 Body Mass Index 22.46 (61.23 kg, 165.10 cm) vc1 ED Course: 19:41 Patient arrived in ED. jj6 19:55 Triage completed. vc1 19:56 Arm band placed on right wrist. vc1 19:59 Kirill Mayers MD is Attending Physician. rn 20:05 Patient has correct armband on for positive identification. Bed in low position. Call ll3 light in reach. Side rails up X 1. 20:08 Simone Oliveira, RN is Primary Nurse. jb4 20:54 XRAY Tib Fib RIGHT In Process Unspecified. EDMS Administered Medications: 21:54 Drug: morphine 4 mg Route: IM; Site: right deltoid; tw5 21:54 Drug: Ketorolac 15 mg Route: IM; Site: left deltoid; tw5 Outcome: 21:33 Discharge ordered by . rn 22:02 Patient left the ED. vc1 Signatures: Dispatcher [employer] EDMS Kirill Mayers MD MD rn Bryson, James, RN RN [id number] Tata Dent tw5 Elham Dhillon6 Clinton Payton RN RN ll3 Kimberly Gallardo RN RN vc1
--- NOTE | 2022-05-02 21:34 | EDPHYS ---
Physician Documentation [facility] Name: Kim Tomlin Age: 32 yrs Sex: Female : 1990 Arrival Date: 05/02/2022 Time: 19:41 Bed 5 Private MD: ED Physician Kirill Mayers HPI: 05/02 20:27 This 32 yrs old Female presents to ER via Ambulatory with complaints of Leg Pain. rn 20:27 The patient presents with an injury, pain, that is acute. The complaints affect the rn posterior aspect of right knee, right calf, right knee and anterior aspect of right ankle. Onset: The symptoms/episode began/occurred 4 day(s) ago. Modifying factors: The symptoms are alleviated by nothing. the symptoms are aggravated by movement, weight bearing, bending knee. Severity of symptoms: At their worst the symptoms were moderate, in the emergency department the symptoms are unchanged. The patient has not experienced similar symptoms in the past. The patient has not recently seen a physician. Pt reports planted right foot and pushed into pool, reports back of right knee/calf hit a bar, is having pain to that location, right medial ankle. + swelling and bruising to right medial ankle. Ambulatory. . 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 - Social history:: Smoking status: Reported history of juuling and/or vaping. - Family history:: not pertinent. - Hospitalizations: : No recent hospitalization is reported. ROS: 20:27 Constitutional: Negative for fever, chills, and weight loss, MS/Extremity: + injury and rn pain to right lower leg Neuro: Negative for weakness, numbness, tingling Exam: 20:27 Constitutional: This is a well developed, well nourished patient who is awake, alert, rn and in no acute distress. Ambulatory to room without assistance. Skin: Warm, dry MS/ Extremity: Pulses equal, no cyanosis. Neurovascular intact. + mild tenderness posterior right knee, no bony tenderness of knee or proximal tib/fib. + ecchymosis and swelling right medial ankle. No foot tenderness or deformity. Able to flex and extend right ankle. Vital Signs: 19:52 BP 105 / 68; Pulse 75; Resp 15; Temp 98.6; Pulse Ox 100% ; Weight 61.23 kg; Height 5 vc1 ft. 5 in. (165.10 cm); Pain 10/10; 19:52 Body Mass Index 22.46 (61.23 kg, 165.10 cm) vc1 MDM: 20:00 Patient medically screened. rn 21:31 Differential diagnosis: closed fracture, contusion, tendon injury. Data reviewed: vital rn signs, nurses notes, radiologic studies, plain films, and as a result, I will discharge patient. Counseling: I had a detailed discussion with the patient and/or guardian regarding: the historical points, exam findings, and any diagnostic results supporting the discharge/admit diagnosis, radiology results, the need for outpatient follow up, to return to the emergency department if symptoms worsen or persist or if there are any questions or concerns that arise at home. Special discussion: I discussed with the patient/guardian in detail that at this point there is no indication for admission to the hospital. It is understood, however, that if the symptoms persist or worsen the patient needs to return immediately for re-evaluation. ED course: Radiology decided to consolidate films from original orders, radiology reports no acute findings. Recommend outpt MRI if symptoms do not improve.. 05/02 20:07 Order name: XRAY Tib Fib RIGHT; Complete Time: 21:30 rn Administered Medications: 21:54 Drug: morphine 4 mg Route: IM; Site: right deltoid; tw5 21:54 Drug: Ketorolac 15 mg Route: IM; Site: left deltoid; tw5 Disposition Summary: 05/02/22 21:33 Discharge Ordered Location: Home rn Problem: new rn Symptoms: have improved rn Condition: Stable rn Diagnosis - Contusion of right lower leg rn - Strain of other muscle(s) and tendon(s) at lower leg level, right leg rn - Pain in right lower leg rn Followup: rn - With: Private Physician - When: As needed - Reason: Recheck today's complaints, Re-evaluation by your physician Discharge Instructions: - Discharge Summary Sheet rn - Ankle Sprain rn - Musculoskeletal Pain rn Forms: - Medication Reconciliation Form rn - Thank You Letter rn - Antibiotic internal medicine specialist - Prescription Opioid Use rn Signatures: Dispatcher [employer] EDMS Kirill Mayers MD MD rn Wood, Tiffany tw5 Kimberly Gallardo RN RN vc1 Corrections: (The following items were deleted from the chart) 20:07 Ankle Right 3 View+RAD.RAD.BRZ ordered. EDMS EDMS 20: 20:08 Knee Right 3 View+RAD.RAD.BRZ ordered. EDMS EDMS
[2022-05-02] MEDS ORDERED: MORPHINE 4 MG/ML SYR ONE (21:54)
[2022-05-02] MEDS ORDERED: KETOROLAC 30 MG/ML INJ ONE (21:55)
[2022-05-03 01:43] VITALS: BP 105/68; TEMP 98.6; O2SAT 100
== END 2022-05-02 22:02 | disposition home or self-care (01) ==
LOC: ER 19:39
DX: S86.811A Strain of other muscle(s) and tendon(s) at lower leg level, right leg, initial encounter (principal); S80.11XA Contusion of right lower leg, initial encounter; Z88.0 Allergy status to penicillin
CPT/HCPCS: 96372; 99283